=== PATIENT | female | born 1945 | race Caucasian/White ===

== ENCOUNTER → 2016-07-09 | Day surgery (SDC) | payer MEDICARE ==
--- NOTE | 2016-07-05 10:04 | TH ---
cc: MABEL MAX M.D. DATE: 07/09/2016 PRINCIPAL DIAGNOSIS Right breast cancer. ATTENDING PHYSICIAN Mabel Max HISTORY OF PRESENT ILLNESS The patient is a 70-year-old female with multiple medical problems including peripheral vascular disease, history of aortic aneurysm, history of subdural hematoma, history of acute deep venous thrombosis of the lower extremity, coronary artery disease, chronic obstructive pulmonary disease, stage III chronic renal insufficiency, hypertension, and lipidemia. She is on chronic warfarin therapy and was seen in 2009 for right breast pain with a questionable mass on clinical exam. Imaging at that time at [facility] demonstrated a 1.5 cm stable nodule in the right breast which had been present since 2003. A screening mammogram on April 08, 2016 demonstrated a 1.1 cm density in the 10 o'clock location of the right breast 6 cm from the nipple which was BI-RADS 5. There was a well-circumscribed 1.2 cm density in the 4 o'clock location of the right breast 3 cm from the nipple which was considered BI-RADS 4 and a 1.3 cm BI-RADS 3 complex cyst in the 8 o'clock location of the left breast 3 cm from the nipple. These findings were confirmed with a diagnostic bilateral mammogram and ultrasound on May 07. Ultrasound-guided core biopsy of all three lesions was recommended but the patient refused a left breast biopsy and agreed to have the two lesions on the right breast biopsied. This was performed on May 26 and demonstrated invasive ductal carcinoma in the lesion at 10 o'clock. Benign fibrocystic change was noted in the 4 o'clock lesion of the right breast. The patient and her are committed to complementary therapies and she was reluctant to pursue surgical therapy but has now agreed. She also continues to smoke one half a pack of cigarettes daily. MEDICAL PROBLEMS Are as described above and she also has a history of multiple prior strokes and is confined to a wheelchair with weakness and contractures on the left side. FAMILY HISTORY Significant for a paternal aunt with postmenopausal breast cancer. PAST SURGERIES Included a craniotomy for subdural hematoma, bilateral carotid endarterectomies, abdominal aortic aneurysm surgery complicated by MRSA, total abdominal hysterectomy. ALLERGIES She has no drug allergies. CURRENT MEDICATIONS Included: 1. Alendronate 70 milligrams weekly. 2. Aspirin 81 milligrams daily. 3. Atorvastatin 10 milligrams daily. 4. Chlorthalidone 25 milligrams daily. 5. Lisinopril 20 milligrams daily. 6. Warfarin 5 milligrams daily. REPRODUCTIVE HISTORY G0, P0. Menarche age 10, surgical menopause age 37. She does not take hormone replacement. REVIEW OF SYSTEMS A 12-point review of systems was significant for chronic obstructive pulmonary disease and wheezing, gastroesophageal reflux, joint stiffness and weakness on the left side, and anxiety. PHYSICAL EXAMINATION GENERAL: She was alert and oriented x3. She did appear older than her stated age. VITAL SIGNS: She was 5 foot 3 and weighed 165 pounds with a BMI of 29.2. Blood pressure was 98/53, temperature 97.8, heart rate 89, respirations 20. HEENT: Exam was unremarkable. NECK: The neck was supple with no adenopathy or thyromegaly. CHEST: Chest was clear throughout, although she was doing some accessory mouth breathing. CARDIAC: Exam revealed normal rhythm and a normal rate. BREASTS: Exam revealed fibrocystic changes and there were no palpable breast masses and the biopsy sites were healing well. ABDOMINAL: Exam revealed a well-healed hysterectomy scar. There was also an abdominal aneurysm midline scar. The remainder of her exam was significant for left-sided weakness and contracture. IMPRESSION Ms. Zayas has upper outer right breast cancer which is clinical stage I. She refused breast MRI due to poor tolerance for positioning and is agreeable to undergo needle-localized lumpectomy and sentinel lymph node biopsy. We discussed the role and importance of radiation therapy but she will likely decline any other adjuvant treatment. MD DAYSI Orozco/HALRAN /4:49 PM /10:01 AM
[~2016-07-09] MED LIST: ALBU0.08 NEB; ASPI81CH CHEW; ATOR10TA15 PO; BUPIVACAINE HCL PF 0.5% 10 ML VIAL ONE; CHLO25TA2 PO; CLAR10CA3 PO; CRAN500C9 PO; ISOSULFAN BLUE 50 MG/5 ML VIAL SQ ONE; LACTATED RINGER'S 1000 ML INJ 1,000 ML ONE; LEVE500T8 PO; LEVE750T8 PO; LISI-515 PO; OXYGEN NAS.CANULA; SODIUM CHLORIDE 0.9% INJ 10 ML ONE; TYLE325T PO; VITA100064 PO; WARF-18 PO; WARF-23 PO; ceFAZolin 2 GM PREMIX 50 ML ONE
== END | disposition home or self-care (01) ==
LOC: ESDC 09:12
PROVIDERS: ATTEND Surgery
DX: C50.411 Malignant neoplasm of upper-outer quadrant of right female breast (principal); Z53.9 Procedure and treatment not carried out, unspecified reason
CPT/HCPCS: J0690; J7120; Q9968

== ENCOUNTER → 2016-07-29 | Outpatient (CLI) | payer MEDICARE ==
[~2016-07-29] MED LIST changes: -BUPIVACAINE HCL PF 0.5% 10 ML VIAL ONE; -ISOSULFAN BLUE 50 MG/5 ML VIAL SQ ONE; -LACTATED RINGER'S 1000 ML INJ 1,000 ML ONE; -SODIUM CHLORIDE 0.9% INJ 10 ML ONE; -ceFAZolin 2 GM PREMIX 50 ML ONE
--- NOTE | 2016-07-29 11:06 | RADRPT ---
EXAM DATE/TIME: 07/29/2016 10:28 [facility] COMPARISON: No previous studies available for comparison. Today's examination is correlated with an outside ultra sound examination performed at another facility. INDICATIONS : Right breast cancer. MEDICAL HISTORY : Right breast cancer. SURGICAL HISTORY : Tonsillectomy. Right breast biopsy. ENCOUNTER: Initial ACUITY: 1 day PAIN SCORE: 4/10 LOCATION: Right breast. FINDINGS: Edwards scale and Doppler imaging of the right breast was performed. Patient is scheduled for surgical e xcision of the right breast mass next week. This mass has previously been biopsied and proven to repr esent a carcinoma. Today's examination is being performed to ensure that we are able to visualize the lesion for ultrasound guided needle localization. At the 10: 00 position, 9 cm from the nipple there is a hypoechoic lesion between 1 and 2 cm in depth measuring 9 x 13 x 10 mm. This corresponds in location to the prior lesion. CONCLUSION: The right breast lesion is adequately visible with ultrasound for needle localization procedure. Israel Miller MD on July 29, 2016 at 11:02 Board Certified Radiologist. This report was verified electronically.
== END ==
LOC: HRAD 10:01
PROVIDERS: ATTEND Surgery
DX: C50.919 Malignant neoplasm of unspecified site of unspecified female breast (principal)
CPT/HCPCS: 76642

== ENCOUNTER → 2016-08-05 | Day surgery (SDC) | payer MEDICARE ==
--- NOTE | 2016-07-29 09:45 | MH ---
cc: MABEL MAX DATE OF ADMISSION 08/05/2016 PRINCIPAL DIAGNOSIS Right breast cancer ATTENDING PHYSICIAN Mabel Max MD HISTORY OF PRESENT ILLNESS The patient is a 70-year-old female who initially presented with a palpable right breast mass, as well as right breast pain. She has multiple medical problems including peripheral vascular disease, history of aortic aneurysm, history of subdural hematoma, history of acute deep venous thrombosis, coronary artery disease, severe chronic obstructive pulmonary disease, stage III renal insufficiency, hypertension, and lipidemia. She is on chronic warfarin therapy. A screening mammogram on April 08, 2016 demonstrated a 1.1 cm density in the 10 o'clock location of the right breast 6 cm from the nipple which was BI-RADS five. There was a well-circumscribed 1.2 cm density in the 4 o'clock location and a 1.3 cm BI-RADS three complex cyst in the 8 o'clock location of the left breast. These findings were confirmed with a diagnostic bilateral mammogram and ultrasound on May 07. Ultrasound-guided core biopsy of all three lesions was recommended, but the patient was only agree to right breast biopsy. The biopsy was performed May 26 and this demonstrated an invasive ductal carcinoma in the 10 o'clock lesion and benign fibrocystic changes in the 4 o'clock lesion. The patient and her were initially reluctant to pursue any surgical therapy, but they have now agreed to a needle-localized lumpectomy. She was scheduled for surgery in June, but had very low resting oxygen saturations and outpatient anesthesia was not advisable. She has since been seen by a account management specialist who recommended supplemental oxygen at home and performing the procedure at a hospital in case admission is required. She now presents for the procedure. SOCIAL HISTORY She continues to smoke a half-a-pack of cigarettes daily. MEDICAL PROBLEMS Are as described above and she has also had multiple prior strokes and is confined to a wheelchair with weakness and contracture on the left side. PAST SURGERIES Included: 1. A craniotomy for subdural hematoma 2. Bilateral carotid endarterectomies. 3. Abdominal aortic aneurysm surgery complicated by MRSA 4. A total abdominal hysterectomy. ALLERGIES She has no drug allergies. MEDICATIONS Include: 1. Alendronate 70 mg weekly 2. Aspirin 81 mg daily 3. Atorvastatin 10 mg daily 4. Chlorthalidone 25 mg daily 5. Lisinopril 20 mg daily 6. Warfarin 5 mg daily REVIEW OF SYSTEMS A 12-point review of systems was significant for chronic respiratory symptoms and wheezing, gastroesophageal reflux, joint stiffness, weakness on the left side, and severe anxiety. PHYSICAL EXAMINATION She is alert and oriented x3 and did appear older than her stated age. VITAL SIGNS: She was 5.3 and weighed 165 pounds with a BMI of 29. Blood pressure was 98/53, temperature 98, heart rate 89, respirations 20. HEENT: Exam was unremarkable. NECK: Supple with no adenopathy or thyromegaly. CHEST: Clear throughout, but there was some accessory breathing. CARDIAC: Exam revealed a normal rate and rhythm. BREASTS: Exam revealed fibrocystic changes and there were no palpable breast masses. There was no axillary adenopathy. ABDOMEN: Abdominal exam revealed a well-healed hysterectomy scar and a midline scar with no hernias. The remainder of the exam was significant for left-sided weakness and contracture. IMPRESSION Ms. Zayas has upper outer right breast cancer which is clinically stage I. She is agreeable to undergo a needle-localized lumpectomy and [place] lymph node biopsy and has now obtained pulmonary clearance to proceed with anesthesia. She does understand the risks and benefits of the procedure and will stop her Coumadin five days prior to surgery. MD DAYSI Orozco/VERONIKA /9:01 AM /9:31 AM
[~2016-08-05] VITALS: Ht 160 cm; Wt 75.0 kg
[~2016-08-05] MED LIST changes: +*RESP: ALBUTEROL 2.5 MG/3 ML NEB (PRN) PERIprocedural Use ONLY NEB ONE; +ATORVASTATIN 10 MG TAB PO SCH; +BUPIVACAINE HCL PF 0.25% 30 ML VIAL ONE; +BUPIVACAINE HCL PF 0.5% 30 ML VIAL ONE; +BUPIVACAINE/EPINEPHRINE 0.5% PF 30 ML VIAL ONE; +CHLORHEXIDINE GLUCONATE 2 % 1 PACK (2 CLOTHS) TOPICAL PRN; +CHLORTHALIDONE 50 MG TAB PO SCH; +DO NOT ADM ANY ANTICOAGULANT DRUGS PRN; +INSULIN HUMAN REGULAR 1,000 UNITS/10 ML VIAL SQ PRN; +ISOSULFAN BLUE 50 MG/5 ML VIAL SQ ONE; +LACTATED RINGER'S 1000 ML INJ 1,000 ML IV ONE; +LACTATED RINGER'S 1000 ML IV PRN; +LIDOCAINE HCL 1% PF 30 ML VIAL ONE; +LISINOPRIL 20 MG TAB PO SCH; +LORATADINE 10 MG TAB PO SCH; +METOPROLOL TARTRATE 25 MG TAB PO PRN; +MORPHINE SULFATE 4 MG/ML INJ IV PRN; +NEOSTIGMINE 3 MG/3 ML SYR IV ONE; +ONDANSETRON HCL 4 MG/2 ML VIAL IV PUSH ONE; +ONDANSETRON HCL 4 MG/2 ML VIAL IV PUSH PRN; +ONDANSETRON HCL 4 MG/2 ML VIAL IV PUSH SCH; +PHENYLEPH/NS 1000 MCG/10 ML SYR IV ONE; +POVIDONE IODINE 5% (ANTISEPSIS KIT) 4 APPLICATIONS EACH NARE PRN; +PROPOFOL 200 MG/20 ML AMP IV ONE; +RESP: ALBUTEROL 2.5 MG/3 ML NEB (PRN) INH; +SODIUM CHLORID 0.9% 500 ML IV PRN; +SODIUM CHLORIDE 0.9% 20 ML VIAL ONE; +ceFAZolin 2 GM PREMIX 50 ML IV SCH; +fentaNYL CITRATE 250 MCG/5 ML AMP ONE; +levETIRAcetam 500 MG TAB PO SCH; +oxyCODONE/ACETAMINOPHEN 5 MG/325 MG TAB PO PRN
[2016-08-05 09:41] VITALS: BP 151/69; PULSE 78; RESP 20; TEMP 98.3; O2SAT 96
[2016-08-05 10:06] LABS: APTT (PATIENT) 27.5 SEC (24.3-30.1)
--- NOTE | 2016-08-05 12:11 | RADRPT ---
EXAM DATE/TIME: 08/05/2016 10:57 [facility] COMPARISON: US BREAST LYMPHO INJ RIGHT, August 05, 2016, 10:41. INDICATIONS : Right breast cancer. DOSE: 1.0 mCi Tc99m Sulfur Colloid deep and intradermal INJECTION SITE: Right Breast MEDICAL HISTORY : Carcinoma, breast. Hypertension. Subdural hematoma. SURGICAL HISTORY : Hysterectomy. Abdominal aortic aneurysm repair. ENCOUNTER: Initial ACUITY: 1 day PAIN SCALE: 0/10 LOCATION: Right Breast. TECHNIQUE: Injection(s) of sulfur colloid was performed under sonographic guidance. Static imaging was obtained .. FINDINGS: Immediate imaging of the right breast was obtained and confirms the intradermal and deep injection in the right breast. At the request of the ordering surgeon, no delayed imaging or marking was performe d. CONCLUSION: Activity in the right breast following right breast lymphoscintigraphy. No marking was performed at t he request of the ordering surgeon. Israel Miller MD on August 05, 2016 at 12:08 Board Certified Radiologist. This report was verified electronically.
--- NOTE | 2016-08-05 12:32 | RADRPT ---
EXAM DATE/TIME: 08/05/2016 10:41 [facility] COMPARISON: No previous studies available for comparison. EXTERNAL COMPARISON : [facility] Breast, May 07, 2016 INDICATIONS : Breast Cancer. MEDICAL HISTORY : Hypertension. Chronic obstructive pulmonary disease. Arthritis. Right breast cancer. Hard of hearing in left ear. Full set dentures. Subdural hematoma. Cyst on right kidney. SURGICAL HISTORY : Hysterectomy. Surgery for hematoma. Aorta repair. Brain surgery. Cory in right femur. Back surgery with hardware. ENCOUNTER: Initial ACUITY: 3 months PAIN SCORE: 9/10 LOCATION: Right breast. AREA EVALUATED: Right breast, upper quadrant; at 10 o'clock Radiopharmaceutical dose: 1 Tc99m [place] colloid FINDINGS: Breast ultrasound was performed prior to lymphoscintigraphy. There is a hypoechoic irregular mass at the 10: 00 position, 9 cm in the nipple measuring 13 mm. CONCLUSION: Ultrasound guidance utilized for lymphoscintigraphy. Israel Miller MD on August 05, 2016 at 12:30 Board Certified Radiologist. This report was verified electronically.
--- NOTE | 2016-08-05 12:34 | RADRPT ---
EXAM DATE/TIME: 08/05/2016 10:41 [facility] COMPARISON: No previous studies available for comparison. EXTERNAL COMPARISON : [facility] Breast, May 07, 2016 INDICATIONS : Right breast cancer. MEDICAL HISTORY : Hypertension. Chronic obstructive pulmonary disease. Arthritis. Right breast cancer. Wears glasses. H suni of hearing. Dentures, full set. Hearing aid in left ear. Subdural hematoma 2001. Left side weakne ss/paralysis. History of DVT. Cyst on kidney. SURGICAL HISTORY : Hysterectomy. Surgery for hematoma. Aorta repair. Cory in right femur. Back surgery with hardware. ENCOUNTER: Initial ACUITY: 3 months PAIN SCORE: 9/10 LOCATION: Right breast. AREA EVALUATED: Right breast. FINDINGS: Following informed consent, the patient's right breast was prepped and draped in a sterile fashion. 1 % lidocaine was utilized as a local anesthetic. Ultrasound imaging demonstrates an irregular hypoecho ic mass at the 10: 00 position, 9 cm in the nipple in the right breast. This corresponds with the biopsy-proven malignan cy. A 10 cm 20 gauge Deras needle was advanced through the superior aspect of the mass with ultrasound guidance. The tip of the needle extends just through the medial aspect of the lesion along the superi or aspect. Princess was deployed and secured to the patient. CONCLUSION: Uncomplicated needle localization procedure of the right breast mass at the 10:00 position, 9 cm from the nipple. The tip of the needle extends through the mass along the superior aspect of the lesion. Israel Miller MD on August 05, 2016 at 12:30 Board Certified Radiologist. This report was verified electronically.
--- NOTE | 2016-08-05 15:49 | HHI.PR ---
Immediate Post Op Note Procedure Date: Aug 05, 2016 Pre Op Diagnosis: Right breast cancer Post Op Diagnosis: Same Surgeon: Mabel Bo Advisory Intern(s): Lucero Henry Procedure: Right breast needle localized lumpectomy, right axillary sentinel lymph node biopsy Findings: 1 suspicious sentinel lymph node, intact wire with lesion in lumpectomy specimen by specimen imaging Complications: None Specimen(s) removed: Right axillary sentinel lymph node, right breast tissue with new anterior and medial margins Estimated blood loss: 100 Anesthesia: General Drains: None Patient to: SDS Patient Condition: Good Mabel Bo MD Aug 05, 2016 15:49
--- NOTE | 2016-08-05 16:33 | RADRPT ---
EXAM DATE/TIME: 08/05/2016 14:45 [facility] COMPARISON: US BREAST RIGHT, July 29, 2016, 10:28. INDICATIONS : Post right breast lumpectomy tissue. MEDICAL HISTORY : Right breast cancer. SURGICAL HISTORY : Right breast lumpectomy. ENCOUNTER: Initial ACUITY: 1 day PAIN SCORE: Nonresponsive. LOCATION: Right breast. FINDINGS: Edwards scale ultrasound imaging of the specimen was performed in documents the regular hypoechoic mass to be within the specimen. CONCLUSION: The irregular lesion is located within the specimen without any definite extension to the surgical ma rgins. Results were telephoned to Dr. Cha. Israel Miller MD on August 05, 2016 at 16:30 Board Certified Radiologist. This report was verified electronically.
[2016-08-05 18:20] VITALS: BP 116/65; PULSE 82; RESP 18; TEMP 97.4; O2SAT 98
--- NOTE | 2016-08-06 23:13 | MP ---
cc: ANDREA MAX DATE OF SURGERY 08/05/16 PRINCIPAL DIAGNOSIS Right breast cancer PROCEDURE PERFORMED Ultrasound-guided right needle localized breast lumpectomy, right axillary sentinel lymph node biopsy. SURGEON Toan Max MD ANESTHESIA General via LMA device. INDICATION The patient is a 71-year-old female with a history of severe chronic obstructive pulmonary disease who required pulmonary optimization prior to surgery. She is considered high risk and the request was made for definitive surgery in the hospital setting. She has opted for breast conservation and now presents for the procedure. FINDINGS AT SURGERY Specimen ultrasound did demonstrate an intact wire and the biopsy clip and lesion were present in the excised tissue. There were no radioactive or Lymphazurin enhancing lymph nodes. There was a palpable enlarged lymph node which was sent as a sentinel lymph node. PROCEDURE IN DETAIL After informed consent was obtained and site verification was performed, the patient was brought to the radiology suite where she underwent needle localization using ultrasound guidance of her known malignancy at 10 o'clock 7 cm from the nipple. She also underwent peritumoral radionuclide injection and was then brought to the major operating room. She was given general anesthesia via an LMA device as well as a single dose of IV Ancef and sequential compression hose were placed. The right breast was prepped and draped in sterile fashion to include the upper arm. Four mL of half-strength Lymphazurin were injected in the subareolar right breast and a 5-minute massage was performed. An incision was anesthetized at the inferior aspect of the right axillary hairline after anesthetizing with 0.5% Marcaine plain. Sharp and electrocautery dissection was performed until the clavipectoral fascia was divided. There was no obvious blue or radioactive lymph nodes identified and a sampling of level I was performed using the harmonic scalpel to dissect the level I tissue. Care was taken to preserve the long thoracic and thoracodorsal neurovascular bundles. Good hemostasis was noted and the single sentinel node was sent for permanent pathologic evaluation. The wound was closed using interrupted 3-0 Vicryl subcutaneous sutures and a 4-0 Monocryl subcuticular suture. Attention was then turned to the right breast where a wire was identified at 10 o'clock 7 cm from the nipple. A periareolar skin incision was anesthetized and incised sharply and both sharp and electrocautery dissection were performed until the wire entry point through the skin was identified and secured with a hemostat. The wire was cut off at the skin with pin cutters and a 2-0 silk transfixion suture was placed at the wire entry point into the breast tissue. Sharp and electrocautery dissection was then performed circumferentially around the wire and the specimen was oriented with two sutures laterally, one short suture superiorly and one long suture anteriorly. The specimen was sent to ultrasound and it was identified within the lumpectomy tissue. Inspection of the specimen did demonstrate that the medial and anterior margins appeared close and each of these was sharply re-incised with a stitch on the new margin. Hemostasis was obtained with electrocautery and the wound was closed using interrupted 3-0 Vicryl subcutaneous sutures and a 4-0 Monocryl subcuticular suture. Steri-Strips and sterile dressing were applied. The patient tolerated the procedure well with an estimated blood loss of 100 mL. She was extubated in the operating room and brought to recovery room in good condition. All sponge and needle counts were correct at the conclusion of the case. MD DAYSI Orozco/ /3:21 PM /11:03 PM
== END | disposition home or self-care (01) ==
LOC: HSDC 08:28
PROVIDERS: ATTEND Surgery
DX: C50.411 Malignant neoplasm of upper-outer quadrant of right female breast (principal); J44.9 Chronic obstructive pulmonary disease, unspecified; K21.9 Gastro-esophageal reflux disease without esophagitis; F41.9 Anxiety disorder, unspecified; I25.10 Atherosclerotic heart disease of native coronary artery without angina pectoris; I12.9 Hypertensive chronic kidney disease with stage 1 through stage 4 chronic kidney disease, or unspecified chronic kidney disease; N18.3 Chronic kidney disease, stage 3 (moderate); E78.5 Hyperlipidemia, unspecified; F17.210 Nicotine dependence, cigarettes, uncomplicated; E66.9 Obesity, unspecified; Z86.718 Personal history of other venous thrombosis and embolism; Z79.01 Long term (current) use of anticoagulants; Z79.82 Long term (current) use of aspirin; Z86.73 Personal history of transient ischemic attack (TIA), and cerebral infarction without residual deficits; Z95.5 Presence of coronary angioplasty implant and graft; Z68.29 Body mass index [BMI] 29.0-29.9, adult; Z17.0 Estrogen receptor positive status [ER+]
CPT/HCPCS: 19001; 19301; 38525; 76642; 76942; 78195; 85610; 85730; 88305; 88307; 94664; A9541; J0690; J2370; J2405; J2710; J3010; J7120; J7613; Q9968